=== PATIENT | female | born 1980 | race Caucasian/White ===

== ENCOUNTER 2023-10-27 19:36 | Emergency (ER) | payer BC, MEDICAID ==
[~2023-10-27] VITALS: Ht 165.1 cm; Wt 68.0 kg
[2023-10-27] MEDS: LIDOcaine 1% 30ml preserv. free vial IJ STA (20:17)
[2023-10-27] MEDS: TETanus/Pertussis (Acell)/Diphther VAC/PF (Tdap-Adult) 0.5ml syringe IMVAC ONE (20:17)
[2023-10-27 20:34] VITALS: BP 122/68; PULSE 60; RESP 16; TEMP 97; O2SAT 99
== END 2023-10-27 20:36 | disposition home or self-care (01) ==
LOC: ER 19:36
DX: S60.352A Superficial foreign body of left thumb, initial encounter (principal); D64.9 Anemia, unspecified; X58.XXXA Exposure to other specified factors, initial encounter; Y93.89 Activity, other specified; Y92.89 Other specified places as the place of occurrence of the external cause; Y99.8 Other external cause status
CPT/HCPCS: 90471; 90715; 99284